=== PATIENT | male | born 1970 | race Caucasian/White ===

== ENCOUNTER 2018-01-06 15:31 | Inpatient (IN) | payer OTHER ==
[~2018-01-06] VITALS: Ht 180.3 cm; Wt 107.5 kg
[2018-01-06 15:48] VITALS: BP 142/91
[2018-01-06 16:41] LABS: URINE BILIRUBIN NEGATIVE (Negative); URINE BLOOD NEGATIVE (Negative); URINE CLARITY CLEAR; URINE COLOR YELLOW; URINE GLUCOSE-RANDOM* 3+ (Negative); URINE KETONES NEGATIVE (Negative); URINE LEUKOCYTES NEGATIVE (Negative); URINE NITRITE NEGATIVE (Negative); URINE PROTEIN (DIPSTICK) NEGATIVE (Negative); URINE SPECIFIC GRAVITY 1.025 (1.005-1.035); URINE UROBILINOGEN 0.2 E.U./dl (0.2-1.0)
[2018-01-06] MEDS ORDERED: ATORVASTATIN CA40 MG PO (17:32)
[2018-01-06] MEDS ORDERED: METFORMIN HCL500 MG PO (17:32)
[2018-01-06] MEDS ORDERED: NASACORT10.8 ML NASAL (17:36)
[2018-01-06 17:49] LABS: ABSOLUTE NEUTROPHILS 10.3 thou/uL (1.4-8.2); BASOPHILS 0.4 % (0.0-2.0); EOSINOPHILS 1.2 % (0.0-3.0); HEMATOCRIT 45.8 % (42.0-52.0); LYMPHOCYTES 16.3 % (24.0-44.0); MCH 31.1 pg (26.0-34.0); MCV 88.7 fL (80.0-100.0); MONOCYTES 6.7 % (1.0-8.0); PLATELET COUNT 214 thou/uL (150-400); POLYS 75.4 % (36.0-66.0); RBC 5.16 mil/uL (4.50-6.00); RDW 13.1 % (10.5-14.5); WBC 13.6 thou/uL (4.0-11.0)
[2018-01-06 17:54] LABS: CALCIUM 9.4 mg/dL (8.5-10.1); CREATININE 1.2 mg/dL (0.7-1.3); POTASSIUM 3.8 mmol/L (3.5-5.1)
[2018-01-06 18:00] LABS: ALBUMIN 4.1 g/dL (3.4-5.0); TOTAL BILIRUBIN 0.7 mg/dL (<0.1-1.0); TOTAL PROTEIN 7.8 g/dL (6.4-8.2)
[2018-01-06 19:41] VITALS: BP 142/85
[2018-01-06 20:02] VITALS: BP 131/87
[2018-01-06 20:25] VITALS: BP 131/81
[2018-01-07] VITALS: BP 124/65
[2018-01-07 04:13] VITALS: BP 112/73
[2018-01-07 06:20] LABS: HEMATOCRIT 40.2 % (42.0-52.0); HEMOGLOBIN 14.2 gm/dL (14.0-18.0); MCH 31.3 pg (26.0-34.0); MCHC 35.3 g/dL (28.0-37.0); MCV 88.8 fL (80.0-100.0); RBC 4.53 mil/uL (4.50-6.00); RDW 12.7 % (10.5-14.5); WBC 14.1 thou/uL (4.0-11.0)
[2018-01-07 06:21] LABS: CALCIUM 8.3 mg/dL (8.5-10.1); CREATININE 1.2 mg/dL (0.7-1.3); POTASSIUM 3.7 mmol/L (3.5-5.1)
[2018-01-07 08:17] VITALS: BP 110/65
[2018-01-07 16:10] VITALS: BP 127/80
[2018-01-07 20:00] VITALS: BP 127/85
[2018-01-08 04:00] LABS: CALCIUM 8.6 mg/dL (8.5-10.1); CREATININE 1.2 mg/dL (0.7-1.3); POTASSIUM 4.1 mmol/L (3.5-5.1)
[2018-01-08 04:01] LABS: HEMATOCRIT 40.4 % (42.0-52.0); MCH 31.1 pg (26.0-34.0); MCHC 34.8 g/dL (28.0-37.0); MCV 89.6 fL (80.0-100.0); RBC 4.51 mil/uL (4.50-6.00); RDW 12.9 % (10.5-14.5); WBC 8.8 thou/uL (4.0-11.0)
[2018-01-08 04:42] VITALS: BP 136/75
[2018-01-08 08:51] VITALS: BP 128/85
[2018-01-08] MEDS ORDERED: CIPRO500 MG PO (17:00)
[2018-01-08] MEDS ORDERED: HYDROCODON-ACE1 EAC7 PO (17:01)
[2018-01-08] MEDS ORDERED: FLAGYL500 MG PO (17:01)
[2018-01-08 17:20] VITALS: BP 128/85
== END 2018-01-08 18:30 | disposition home or self-care (01) | DRG 872 ==
LOC: ER 15:31 → 4S 19:24 → EROBS 19:24 → 4S 20:17 → ENTRNSPT 01-08 18:26 → 4S 01-08 18:30
PROVIDERS: Hospitalist; Nurse Practitioner Family; Physician Assistant
DX: A41.9 Sepsis, unspecified organism (principal); K57.32 Diverticulitis of large intestine without perforation or abscess without bleeding; E78.5 Hyperlipidemia, unspecified; E11.9 Type 2 diabetes mellitus without complications; F17.220 Nicotine dependence, chewing tobacco, uncomplicated; K76.0 Fatty (change of) liver, not elsewhere classified; Z79.899 Other long term (current) drug therapy; Z23 Encounter for immunization
CPT/HCPCS: 10195